=== PATIENT | male | born 1985 | race Caucasian/White ===

== ENCOUNTER 2018-07-25 02:25 | Emergency (ER) | payer MEDICAID ==
[2018-07-25] MEDS ORDERED: traMADol 50 MG Tab PO ONE (03:11)
--- NOTE | 2018-07-25 03:11 | EDM.PDOC ---
ED HPI GENERAL MEDICAL PROBLEM - General Chief Complaint: Headache Stated Complaint: TOOTHACHE Time Seen by Provider: 07/25/18 02:55 Source of Information: Reports: Patient, Old Records, RN History Limitations: Reports: No Limitations - History of Present Illness INITIAL COMMENTS - FREE TEXT/NARRATIVE: 33 yo male here with his father for a BECERRA that has been present for about a week. No fever. Thinks the BECERRA is a result of an infection from his bad teeth. Has not been to the clinic for this. Is a heavy alcohol drinker and has been drinking today. Has propranolol LA bid prescribed for HTN and states he is taking it. No recent head injury. Hasn't seen a dentist in years. Is taking ibuprofen without benefit, last dose 400 mg 3 hrs prior to arrival. Vomited yesterday. Onset: Gradual Onset Date: 07/18/18 Duration: Week(s): (1), Getting Worse Location: Reports: Head Quality: Reports: Ache Severity: Severe Improves with: Reports: None Worsens with: Reports: Other (time) Context: Reports: Other (Bad dentitian, heavy ETOH use.) Associated Symptoms: Reports: Headaches. 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: NSAIDS Headache Pain Score (Numeric/FACES): 8 - Related Data Allergies Allergy/AdvReac Type Severity Reaction Status Date / Time Sulfa (Sulfonamide Allergy Cannot Verified 07/25/18 02:38 Antibiotics) Remember Home Meds: Home Meds Propranolol [Inderal LA 24 Hr] 60 mg PO BID 07/25/18 [History] Past Medical History HEENT History: Reports: Impaired Vision Cardiovascular History: Reports: Hypertension, Other (See Below) Other Cardiovascular History: long QT syndrome Gastrointestinal History: Reports: GERD Musculoskeletal History: Reports: Fracture Psychiatric History: Reports: ADD, Addiction, Anxiety, Depression, Panic Attack Social & Family History - Family History Cardiac: Reports: Hypertension Other Cardiac Family History: Long QT syndrome - Tobacco Use Smoking Status *Q: Current Every Day Smoker Years of Tobacco use: 16 Packs/Tins Daily: 1 - Caffeine Use Caffeine Use: Reports: None - Alcohol Use Days Per Week of Alcohol Use: 7 Number of Drinks Per Day: 10 Total Drinks Per Week: 70 Date of Last Drink: 07/25/18 - Recreational Drug Use Recreational Drug Use: No ED ROS GENERAL - Review of Systems Review Of Systems: See Below Constitutional: Reports: No Symptoms HEENT: Reports: Dental Pain (chronic, but did have some L sided facial swelling earlier, now gone. ) Respiratory: Reports: No Symptoms Cardiovascular: Reports: No Symptoms GI/Abdominal: Reports: Nausea (recently, not now) : Reports: No Symptoms Musculoskeletal: Reports: No Symptoms Skin: Reports: No Symptoms Neurological: Reports: Headache - Physical Exam Exam: See Below Exam Limited By: No Limitations General Appearance: Alert, WD/WN, No Apparent Distress, Other (ETOH on breath) Eye Exam: Bilateral Eye: Normal Inspection Ears: Normal External Exam, Normal Canal, Hearing Grossly Normal, Normal TMs Nose: Normal Inspection, Normal Mucosa, No Blood Throat/Mouth: Normal Lips, Normal Oropharynx, Normal Voice, No Airway Compromise , Other (Very poor dentitian). No: Normal Teeth Head Exam: Atraumatic, Normocephalic. No: Facial Swelling Neck: Normal Inspection, Supple, Non-Tender Respiratory/Chest: No Respiratory Distress, Lungs Clear, Normal Breath Sounds, No Accessory Muscle Use Cardiovascular: Regular Rate, Rhythm, No Edema GI/Abdominal: Normal Bowel Sounds, Soft, Non-Tender, No Distention Neuro Exam (Abbreviated): Alert, Oriented, CN II-XII Intact, Normal Cognition, No Motor/Sensory Deficits Back Exam: Normal Inspection Extremities: Normal Inspection, Normal Range of Motion, Non-Tender, No Pedal Edema Psychiatric: Normal Affect, Normal Mood Skin Exam: Warm, Dry, Intact, Normal Color, No Rash Course - Vital Signs Last Recorded V/S: Last Vital Signs Temp 35.8 C 07/25/18 02:42 Pulse 63 07/25/18 02:42 Resp 18 07/25/18 02:42 BP 190/123 H 07/25/18 02:47 Pulse Ox 99 07/25/18 02:42 - Orders/Labs/Meds Orders: Active Orders 24 hr Category Date Time Status Head wo Cont [CT] Stat Exams 07/25/18 02:54 Ordered - Radiology Interpretation Free Text/Narrative:: Head CT scan-negative CT Results Date: 07/25/18 CT Results Time: 03:25 Departure - Departure Time of Disposition: 03:35 Disposition: Home, Self-Care 01 Condition: Fair Clinical Impression: Poor dentition Headache Qualifiers: Headache type: unspecified Headache chronicity pattern: acute headache Intractability: intractable Qualified Code(s): R51 - Headache HTN (hypertension) Qualifiers: Hypertension type: unspecified Qualified Code(s): I10 - Essential (primary) hypertension - Discharge Information *PRESCRIPTION DRUG MONITORING PROGRAM REVIEWED*: Not Applicable *COPY OF PRESCRIPTION DRUG MONITORING REPORT IN PATIENT NARGIS: Not Applicable Instructions: General Headache Without Cause Referrals: PCP,None [Primary Care Provider] - Additional Instructions: You need to stay away from alcohol in order to get your BP under control. Take both amlodipine and propranolol as recommended by your doctor to try to control your BP. Take penicillin as directed until gone for a potential dental infection. Take tramadol as directed for BECERRA control. See your doctor within the week for recheck. See a dentist of your choice randal. - My Orders Last 24 Hours: My Active Orders 07/25/18 02:54 Head wo Cont [CT] Stat - Assessment/Plan Last 24 Hours: My Active Orders 07/25/18 02:54 Head wo Cont [CT] Stat
[2018-07-25] MEDS ORDERED: Penicillin V Potassium 250 MG Tab PO ONE (03:25)
[2018-07-25] MEDS ORDERED: amLODIPine 5 MG Tab PO ONE (03:26)
[2018-07-25 04:05] VITALS: BP 182/120
== END 2018-07-25 03:48 | disposition home or self-care (01) ==
LOC: JP.ED 02:25
DX: R51 Headache (principal); K00.7 Teething syndrome; I10 Essential (primary) hypertension; Z88.2 Allergy status to sulfonamides; F17.210 Nicotine dependence, cigarettes, uncomplicated
CPT/HCPCS: 70450; 99284; A9270

== ENCOUNTER 2022-12-16 17:31 | Emergency (ER) | payer MEDICAID ==
[2022-12-16 18:37] LABS: ESTIMATED GFR 129 mL/min (>60)
[2022-12-16 18:53] LABS: CORONAVIRUS COVID-19 NAA NEGATIVE (NEGATIVE)
[2022-12-16] MEDS ORDERED: Metoprolol Succinate 50 MG Tab.ER PO ONE (20:13)
[2022-12-16 20:25] VITALS: BP 153/84; PULSE 58
[2022-12-18] MEDS ORDERED: Haloperidol Lactate 5 MG/ML SDV IVPUSH ONE (22:53)
[2022-12-18] MEDS ORDERED: LORazepam 2 MG/ML SDV IVPUSH ONE (22:53)
== END 2022-12-16 20:22 | disposition other institution (70) ==
LOC: JP.ED 17:31
DX: F10.120 Alcohol abuse with intoxication, uncomplicated (principal); I10 Essential (primary) hypertension; F17.210 Nicotine dependence, cigarettes, uncomplicated; Z88.2 Allergy status to sulfonamides; Z20.822 Contact with and (suspected) exposure to COVID-19; Y90.7 Blood alcohol level of 200-239 mg/100 ml
CPT/HCPCS: 0241U; 36415; 80053; 80305; 80307; 81001; 85025; 99284; A9270; 99283

== ENCOUNTER 2022-12-18 22:47 | Inpatient (IN) | payer MEDICAID ==
[2022-12-18] MEDS ORDERED: Haloperidol Lactate 5 MG/ML SDV IVPUSH ONE (23:11)
[2022-12-18] MEDS ORDERED: LORazepam 2 MG/ML SDV IVPUSH ONE (23:11)
[2022-12-18 23:20] LABS: ESTIMATED GFR 129 mL/min (>60)
[2022-12-19] MEDS ORDERED: MVI, Adult with Vitamin K 10 ML, Thiamine 100 MG, Folic Acid 1 MG, Magnesium Sulfate 2 ... IV ONE ×10 (00:23→21:00)
[2022-12-19] MEDS ORDERED: Sodium Chloride 3% 500 ML IV SCH (00:30)
[2022-12-19] MEDS ORDERED: Haloperidol Lactate 5 MG/ML SDV IVPUSH ONE ×2 (00:41→02:37)
[2022-12-19] MEDS ORDERED: LORazepam 2 MG/ML SDV IM ONE (00:41)
[2022-12-19] MEDS ORDERED: LORazepam 2 MG/ML SDV IVPUSH ONE (00:46)
[2022-12-19] MEDS: LORazepam 2 MG/ML SDV IV SCH ×16 (02:00→23:58)
[2022-12-19 04:38] LABS: ESTIMATED GFR 129 mL/min (>60)
[2022-12-19] MEDS: Haloperidol Lactate 5 MG/ML SDV IVPUSH PRN ×6 (07:25→23:57)
[2022-12-19] MEDS: traMADol 50 MG Tab PO PRN (15:03)
[2022-12-19] MEDS: Sodium Chloride 0.9% 1,000 ML IV SCH (18:21)
[2022-12-20] MEDS: LORazepam 2 MG/ML SDV IV SCH ×2 (01:49→05:04)
[2022-12-20] MEDS: Haloperidol Lactate 5 MG/ML SDV IVPUSH PRN (05:04)
[2022-12-20 05:18] LABS: ESTIMATED GFR 136 mL/min (>60)
[2022-12-20] MEDS: Sodium Chloride 0.9% 1,000 ML IV SCH ×2 (05:44→13:29)
[2022-12-20] MEDS: Potassium Chloride 20 MEQ Tab.ER PO SCH ×2 (10:29→20:03)
[2022-12-20] MEDS: LORazepam 1 MG Tab PO SCH ×7 (14:51→23:36)
[2022-12-20] MEDS: Metoprolol Succinate 50 MG Tab.ER PO SCH (19:49)
[2022-12-20] MEDS: traMADol 50 MG Tab PO PRN (22:32)
[2022-12-21] MEDS: LORazepam 1 MG Tab PO SCH ×4 (00:32→04:53)
[2022-12-21] MEDS: traMADol 50 MG Tab PO PRN ×2 (04:54→22:30)
[2022-12-21] MEDS: LORazepam 2 MG/ML SDV IV SCH ×14 (05:18→23:36)
[2022-12-21] MEDS: Haloperidol Lactate 5 MG/ML SDV IVPUSH PRN ×4 (05:44→23:23)
[2022-12-21] MEDS: Metoprolol Succinate 50 MG Tab.ER PO SCH (09:00)
[2022-12-21] MEDS: Potassium Chloride 20 MEQ Tab.ER PO SCH ×2 (10:30→20:06)
[2022-12-22] MEDS: LORazepam 2 MG/ML SDV IV SCH ×2 (00:25→01:31)
[2022-12-22] MEDS: Haloperidol Lactate 5 MG/ML SDV IVPUSH PRN (02:05)
[2022-12-22 10:21] LABS: ESTIMATED GFR 123 mL/min (>60)
[2022-12-22] MEDS: LORazepam 1 MG Tab PO SCH ×3 (13:53→22:25)
[2022-12-22] MEDS: Potassium Chloride 20 MEQ Tab.ER PO SCH ×2 (13:54→20:01)
[2022-12-22] MEDS: Metoprolol Succinate 50 MG Tab.ER PO SCH (13:56)
[2022-12-22] MEDS: traMADol 50 MG Tab PO PRN (22:25)
[2022-12-23] MEDS: Potassium Chloride 20 MEQ Tab.ER PO SCH ×2 (08:22→20:58)
[2022-12-23] MEDS: Metoprolol Succinate 50 MG Tab.ER PO SCH ×2 (11:49→17:32)
[2022-12-23] MEDS: traMADol 50 MG Tab PO PRN (13:36)
[2022-12-23] MEDS: LORazepam 1 MG Tab PO SCH ×2 (14:31→21:01)
[2022-12-23] MEDS ORDERED: Ibuprofen 800 MG Tab PO PRN (14:48)
[2022-12-23 20:12] LABS: ESTIMATED GFR 118 mL/min (>60)
[2022-12-24 07:09] VITALS: BP 147/96
[2022-12-24] MEDS: LORazepam 1 MG Tab PO SCH (08:59)
[2022-12-24 09:00] VITALS: PULSE 74
[2022-12-24] MEDS: Metoprolol Succinate 50 MG Tab.ER PO SCH (09:00)
[2022-12-24] MEDS: Potassium Chloride 20 MEQ Tab.ER PO SCH (09:00)
[2022-12-25 09:10] LABS: FREE THYROXINE INDEX 2.8 (1.2-4.9)
[2022-12-27 18:10] LABS: A/G RATIO 0.9 (0.7-1.7); ALBUMIN 3.5 g/dL (2.9-4.4); ALPHA-1-GLOBULIN 0.3 g/dL (0.0-0.4); ALPHA-2-GLOBULIN 0.7 g/dL (0.4-1.0); BETA GLOBULIN 1.5 g/dL (0.7-1.3); GAMMA GLOBULIN 1.5 g/dL (0.4-1.8); M-SPIKE Not Observed g/dL (Not Observed); PROTEIN, TOTAL, SERUM 7.5 g/dL (6.0-8.5)
== END 2022-12-24 10:36 | disposition home or self-care (01) | DRG 897 ==
LOC: JP.ED 22:47 → JP.ICU 23:39
PROVIDERS: ADMIT Internal Medicine; ATTEND Internal Medicine
DX: F10.231 Alcohol dependence with withdrawal delirium (principal); E87.1 Hypo-osmolality and hyponatremia; K70.9 Alcoholic liver disease, unspecified; I10 Essential (primary) hypertension; H54.7 Unspecified visual loss; K21.9 Gastro-esophageal reflux disease without esophagitis; F41.0 Panic disorder [episodic paroxysmal anxiety]; F32.A Depression, unspecified; Z88.2 Allergy status to sulfonamides
CPT/HCPCS: 36415; 80048; 80053; 84165; 84436; 84439; 84443; 84479; 84481; 85025; 96374; 96375; 96376; 99285; 99285-25; A9270-GY; J1630; J2060; J3411; J3475; J3490; J7030

== ENCOUNTER 2023-05-06 00:41 | Inpatient (IN) | payer MEDICAID ==
[2023-05-06] MEDS ORDERED: Sodium Chloride 0.9% 10 ML Syringe FLUSH PRN ×2 (02:12→15:51)
[2023-05-06] MEDS ORDERED: LORazepam 2 MG/ML SDV IVPUSH STA ×2 (02:12→06:32)
[2023-05-06 02:21] LABS: HEMATOCRIT 36.9 % (38.4-49.7); HEMOGLOBIN 13.6 g/dL (12.9-16.9); MEAN CORPUSCULAR HEMOGLOBIN 30.8 pg (31.6-35.5); MEAN CORPUSCULAR HGB CONC 36.9 g/dL (31.6-35.5); MEAN CORPUSCULAR VOLUME 83.7 fL (81.4-99.0); RED BLOOD CELL COUNT 4.41 M/uL (4.14-5.76); WHITE BLOOD CELL COUNT,WBC 2.9 K/uL (3.2-11.0)
[2023-05-06 02:42] LABS: A/G RATIO 0.9 (1.2-2.2); ALANINE AMINOTRANSFERASE,ALT 132 U/L (12-78); ALBUMIN 3.9 g/dL (3.4-5.0); ALKALINE PHOSPHATASE 156 U/L (46-116); ASPARTATE AMNIOTRANSFERASE,AST 196 U/L (15-37); BILIRUBIN TOTAL 0.6 mg/dL (0.2-1.0); BLOOD UREA NITROGEN,BUN 2 mg/dL (7-18); CALCIUM 8.9 mg/dL (8.5-10.1); CARBON DIOXIDE,CO2 23 mmol/L (21-32); CHLORIDE,CL 88 mmol/L (100-108); CREATININE 0.6 mg/dL (0.8-1.3); EST CRCL DRUG DOSING (CG) 175.74 mL/min; ESTIMATED GFR 128 mL/min (>60); GLUCOSE RANDOM 109 mg/dL (74-106); PROTEIN TOTAL,TP 8.1 g/dL (6.4-8.2); SODIUM,NA 124 mmol/L (140-148)
[2023-05-06] MEDS ORDERED: Sodium Chloride 0.9% 1,000 ML IV ONE ×2 (02:52→03:59)
[2023-05-06 03:05] LABS: BASOPHILS ABSOLUTE AUTO 0.03 K/uL (0.00-0.10); BASOPHILS PERCENT AUTO 1.1 % (0.1-1.3); EOSINOPHILS ABSOLUTE AUTO 0.01 K/uL (0.00-0.40); EOSINOPHILS PERCENT AUTO 0.4 % (0.0-5.4); HEMATOCRIT 37.4 % (38.4-49.7); HEMOGLOBIN 13.6 g/dL (12.9-16.9); IMMATURE GRAN ABSOLUTE AUTO 0.01 K/uL (0.00-0.23); IMMATURE GRAN PERCENT AUTO 0.4 % (0.0-0.7); LYMPHOCYTES ABSOLUTE AUTO 1.25 K/uL (0.8-3.3); LYMPHOCYTES PERCENT AUTO 43.9 % (11.4-47.7); MEAN CORPUSCULAR HEMOGLOBIN 30.5 pg (31.6-35.5); MEAN CORPUSCULAR HGB CONC 36.4 g/dL (31.6-35.5); MEAN CORPUSCULAR VOLUME 83.9 fL (81.4-99.0); MONOCYTES ABSOLUTE AUTO 0.29 K/uL (0.20-0.90); MONOCYTES PERCENT AUTO 10.2 % (3.3-12.6); NEUTROPHILS ABSOLUTE AUTO 1.26 K/uL (1.0-7.6); PLATELET COUNT,PLT 66 K/uL (130-375); RED BLOOD CELL COUNT 4.46 M/uL (4.14-5.76); WHITE BLOOD CELL COUNT,WBC 2.9 K/uL (3.2-11.0)
[2023-05-06 03:07] LABS: AMPHETAMINES SCREEN, URINE NEGATIVE (NEGATIVE); BARBITURATE SCREEN,URINE NEGATIVE (NEGATIVE); BENZODIAZEPINES SCREEN,URINE NEGATIVE (NEGATIVE); METHADONE SCREEN, URINE NEGATIVE (NEGATIVE); METHAMPHETAMINES SCREEN, URINE NEGATIVE (NEGATIVE); OXYCODONE SCREEN,URINE NEGATIVE (NEGATIVE); PROPOXYPHENE SCREEN,URINE NEGATIVE (NEGATIVE); THC SCREEN,URINE 50 NG/ML PRESUMPTIVE POSITIVE (NEGATIVE)
[2023-05-06 03:09] LABS: APPEARANCE,URINE CLEAR (CLEAR); BILIRUBIN,URINE NEGATIVE (NEGATIVE); COLOR,URINE YELLOW (YELLOW); GLUCOSE,URINE NEGATIVE (NEGATIVE); KETONES,URINE NEGATIVE (NEGATIVE); LEUKOCYTE ESTERASE,URINE NEGATIVE (NEGATIVE); NITRITE,URINE NEGATIVE (NEGATIVE); OCCULT BLOOD,URINE NEGATIVE (NEGATIVE); PH,URINE 5.5 (5.0-8.0); PROTEIN,URINE NEGATIVE (NEGATIVE); UROBILINOGEN,URINE 0.2 EU/dL (0.2-1.0)
[2023-05-06 03:12] LABS: AMORPHOUS SEDIMENT,URINE NOT SEEN; BACTERIA,URINE RARE; EPITHELIAL CELLS,URINE RARE; MUCUS,URINE RARE; RBC,URINE 0-5 (0-5); WBC,URINE 0-5 (0-5)
[2023-05-06] MEDS ORDERED: LORazepam 2 MG/ML SDV IVPUSH ONE (10:02)
[2023-05-06] MEDS ORDERED: Sennosides/Docusate Sodium 50-8.6 MG Tab PO PRN (15:51)
[2023-05-06] MEDS ORDERED: Ondansetron 4 MG/2 ML SDV IV PRN (15:51)
[2023-05-06] MEDS ORDERED: Albuterol 0.083% 2.5 MG/3 ML Neb Soln NEB PRN (15:51)
[2023-05-06] MEDS ORDERED: MVI, Adult with Vitamin K 10 ML, Thiamine 100 MG, Folic Acid 1 MG, Magnesium Sulfate 2 ... IV ONE ×5 (16:00)
[2023-05-06] MEDS: Pantoprazole 40 MG Tab.CR PO SCH (16:50)
[2023-05-06] MEDS: Gabapentin 400 MG Cap PO SCH (16:51)
[2023-05-06] MEDS: Folic Acid 1 MG Tab PO SCH (16:51)
[2023-05-06] MEDS: Thiamine 100 MG Tab PO SCH (16:51)
[2023-05-06] MEDS: LORazepam 1 MG Tab PO SCH ×3 (17:02→21:58)
[2023-05-07] MEDS: LORazepam 1 MG Tab PO SCH ×6 (00:13→10:07)
[2023-05-07] MEDS: Gabapentin 400 MG Cap PO SCH ×4 (00:13→23:42)
[2023-05-07 05:17] LABS: HEMATOCRIT 35.2 % (38.4-49.7); HEMOGLOBIN 12.6 g/dL (12.9-16.9); MEAN CORPUSCULAR HGB CONC 35.8 g/dL (31.6-35.5); MEAN CORPUSCULAR VOLUME 86.7 fL (81.4-99.0); RED BLOOD CELL COUNT 4.06 M/uL (4.14-5.76)
[2023-05-07 05:26] LABS: INR 1.1
[2023-05-07 05:38] LABS: ALANINE AMINOTRANSFERASE,ALT 108 U/L (12-78); ALBUMIN 3.3 g/dL (3.4-5.0); BILIRUBIN TOTAL 1.1 mg/dL (0.2-1.0); BLOOD UREA NITROGEN,BUN 4 mg/dL (7-18); CALCIUM 8.7 mg/dL (8.5-10.1); CARBON DIOXIDE,CO2 23 mmol/L (21-32); CHLORIDE,CL 95 mmol/L (100-108); CREATININE 0.6 mg/dL (0.8-1.3); EST CRCL DRUG DOSING (CG) 175.74 mL/min; ESTIMATED GFR 128 mL/min (>60); GLUCOSE RANDOM 85 mg/dL (74-106); MAGNESIUM 2.3 mg/dL (1.8-2.4); POTASSIUM,K 4.5 mmol/L (3.6-5.2); PROTEIN TOTAL,TP 7.2 g/dL (6.4-8.2); SODIUM,NA 130 mmol/L (140-148)
[2023-05-07 05:41] LABS: A/G RATIO 0.9 (1.2-2.2); ALKALINE PHOSPHATASE 130 U/L (46-116); ANION GAP 16.5 mmol/L (5.0-14.0)
[2023-05-07 05:42] LABS: ASPARTATE AMNIOTRANSFERASE,AST 166 U/L (15-37)
[2023-05-07] MEDS: Pantoprazole 40 MG Tab.CR PO SCH (07:36)
[2023-05-07] MEDS: Thiamine 100 MG Tab PO SCH (08:14)
[2023-05-07] MEDS: Folic Acid 1 MG Tab PO SCH (08:14)
[2023-05-07] MEDS: LORazepam 2 MG/ML SDV IV SCH ×8 (12:46→23:34)
[2023-05-07 22:04] LABS: BASE EXCESS ARTERIAL 1.1 mm/L; BICARBONATE,ARTERIAL 24.1 mmol/L (22.0-26.0); CARBOXYHEMOGLOBIN 1.7 % (0.0-1.6); METHEMOGLOBIN 0.8 %; O2 SATURATION ARTERIAL 95.7 % (95.0-98.0); OXYHEMOGLOBIN 93.3 %; PO2 ARTERIAL 79.2 mmHg (75.0-100.0); TOTAL HEMOGLOBIN 12.5 g/dL (13.5-18.0)
[2023-05-08] MEDS: LORazepam 2 MG/ML SDV IV SCH ×20 (00:56→22:14)
[2023-05-08] MEDS ORDERED: PHENobarbitaL sodium 260 MG in Sodium Chloride 0.9% 100 ML IV ONE (04:33)
[2023-05-08] MEDS ORDERED: PHENobarbitaL sodium 130 MG in Sodium Chloride 0.9% 100 ML IV ONE ×6 (05:57→15:30)
[2023-05-08] MEDS ORDERED: PHENobarbital Sodium 65 MG/ML SDV ONE (06:00)
[2023-05-08] MEDS ORDERED: Sodium Chloride 0.9% 100 ML ONE (06:01)
[2023-05-08 06:07] LABS: BASOPHILS PERCENT AUTO 0.4 % (0.1-1.3); EOSINOPHILS PERCENT AUTO 0.4 % (0.0-5.4); HEMATOCRIT 33.8 % (38.4-49.7); HEMOGLOBIN 12.1 g/dL (12.9-16.9); IMMATURE GRAN PERCENT AUTO 0.8 % (0.0-0.7); LYMPHOCYTES ABSOLUTE AUTO 0.64 K/uL (0.8-3.3); LYMPHOCYTES PERCENT AUTO 26.9 % (11.4-47.7); MEAN CORPUSCULAR HEMOGLOBIN 31.1 pg (31.6-35.5); MEAN CORPUSCULAR HGB CONC 35.8 g/dL (31.6-35.5); MEAN CORPUSCULAR VOLUME 86.9 fL (81.4-99.0); MONOCYTES PERCENT AUTO 8.4 % (3.3-12.6); NEUTROPHILS PERCENT AUTO 63.1 % (40.0-78.1); PLATELET COUNT,PLT 32 K/uL (130-375); RED BLOOD CELL COUNT 3.89 M/uL (4.14-5.76); WHITE BLOOD CELL COUNT,WBC 2.4 K/uL (3.2-11.0)
[2023-05-08 06:16] LABS: INR 1.2; PROTHROMBIN TIME 12.2 sec (9.2-10.6)
[2023-05-08 06:20] LABS: A/G RATIO 0.8 (1.2-2.2); ALANINE AMINOTRANSFERASE,ALT 106 U/L (12-78); ALBUMIN 3.2 g/dL (3.4-5.0); ALKALINE PHOSPHATASE 131 U/L (46-116); ASPARTATE AMNIOTRANSFERASE,AST 161 U/L (15-37); BILIRUBIN TOTAL 1.7 mg/dL (0.2-1.0); BLOOD UREA NITROGEN,BUN 2 mg/dL (7-18); CALCIUM 8.9 mg/dL (8.5-10.1); CARBON DIOXIDE,CO2 26 mmol/L (21-32); CHLORIDE,CL 95 mmol/L (100-108); CREATININE 0.6 mg/dL (0.8-1.3); EST CRCL DRUG DOSING (CG) 175.74 mL/min; ESTIMATED GFR 128 mL/min (>60); GLUCOSE RANDOM 101 mg/dL (74-106); POTASSIUM,K 3.9 mmol/L (3.6-5.2); PROTEIN TOTAL,TP 7.1 g/dL (6.4-8.2); SODIUM,NA 130 mmol/L (140-148)
[2023-05-08 06:27] LABS: ANION GAP 12.9 mmol/L (5.0-14.0); BASOPHILS ABSOLUTE AUTO 0.01 K/uL (0.00-0.10); EOSINOPHILS ABSOLUTE AUTO 0.01 K/uL (0.00-0.40); IMMATURE GRAN ABSOLUTE AUTO 0.02 K/uL (0.00-0.23)
[2023-05-08] MEDS: Gabapentin 400 MG Cap PO SCH ×3 (07:15→23:41)
[2023-05-08] MEDS: Pantoprazole 40 MG Tab.CR PO SCH (07:15)
[2023-05-08] MEDS: Folic Acid 1 MG Tab PO SCH (08:13)
[2023-05-08] MEDS: Thiamine 100 MG Tab PO SCH (08:13)
[2023-05-09] MEDS: LORazepam 2 MG/ML SDV IV SCH ×9 (00:21→19:17)
[2023-05-09 05:08] LABS: BASOPHILS PERCENT AUTO 0.3 % (0.1-1.3); EOSINOPHILS ABSOLUTE AUTO 0.03 K/uL (0.00-0.40); EOSINOPHILS PERCENT AUTO 0.9 % (0.0-5.4); HEMATOCRIT 35.3 % (38.4-49.7); HEMOGLOBIN 12.5 g/dL (12.9-16.9); IMMATURE GRAN PERCENT AUTO 0.3 % (0.0-0.7); LYMPHOCYTES PERCENT AUTO 21.8 % (11.4-47.7); MEAN CORPUSCULAR HGB CONC 35.4 g/dL (31.6-35.5); MEAN CORPUSCULAR VOLUME 87.6 fL (81.4-99.0); MONOCYTES ABSOLUTE AUTO 0.23 K/uL (0.20-0.90); MONOCYTES PERCENT AUTO 7.2 % (3.3-12.6); NEUTROPHILS ABSOLUTE AUTO 2.23 K/uL (1.0-7.6); NEUTROPHILS PERCENT AUTO 69.5 % (40.0-78.1); PLATELET COUNT,PLT 36 K/uL (130-375); RED BLOOD CELL COUNT 4.03 M/uL (4.14-5.76); WHITE BLOOD CELL COUNT,WBC 3.2 K/uL (3.2-11.0)
[2023-05-09 05:17] LABS: BASOPHILS ABSOLUTE AUTO 0.01 K/uL (0.00-0.10); IMMATURE GRAN ABSOLUTE AUTO 0.01 K/uL (0.00-0.23); INR 1.1; PROTHROMBIN TIME 11.4 sec (9.2-10.6)
[2023-05-09 05:27] LABS: A/G RATIO 0.8 (1.2-2.2); ALANINE AMINOTRANSFERASE,ALT 103 U/L (12-78); ALBUMIN 3.1 g/dL (3.4-5.0); ALKALINE PHOSPHATASE 122 U/L (46-116); ASPARTATE AMNIOTRANSFERASE,AST 149 U/L (15-37); BILIRUBIN TOTAL 1.5 mg/dL (0.2-1.0); BLOOD UREA NITROGEN,BUN 1 mg/dL (7-18); CALCIUM 8.7 mg/dL (8.5-10.1); CARBON DIOXIDE,CO2 23 mmol/L (21-32); CHLORIDE,CL 97 mmol/L (100-108); CREATININE 0.5 mg/dL (0.8-1.3); EST CRCL DRUG DOSING (CG) 210.89 mL/min; ESTIMATED GFR 136 mL/min (>60); GLUCOSE RANDOM 91 mg/dL (74-106); POTASSIUM,K 3.6 mmol/L (3.6-5.2); PROTEIN TOTAL,TP 6.9 g/dL (6.4-8.2); SODIUM,NA 131 mmol/L (140-148)
[2023-05-09 05:31] LABS: ANION GAP 14.6 mmol/L (5.0-14.0)
[2023-05-09] MEDS: PHENobarbitaL sodium 130 MG in Sodium Chloride 0.9% 100 ML IV SCH ×2 (09:14→21:30)
[2023-05-09] MEDS: Pantoprazole 40 MG Tab.CR PO SCH (09:22)
[2023-05-09] MEDS: Gabapentin 400 MG Cap PO SCH ×2 (09:22→16:00)
[2023-05-09] MEDS: Thiamine 100 MG Tab PO SCH (09:22)
[2023-05-09] MEDS: Folic Acid 1 MG Tab PO SCH (09:22)
[2023-05-09] MEDS: Pantoprazole 40 MG Vial IVPUSH SCH (10:46)
[2023-05-09] MEDS: Dextrose 5%-Lact Ringers w/KCl 1,000 ML IV SCH (11:10)
[2023-05-10] MEDS: Gabapentin 400 MG Cap PO SCH ×3 (00:45→15:36)
[2023-05-10] MEDS: Dextrose 5%-Lact Ringers w/KCl 1,000 ML IV SCH (01:03)
[2023-05-10] MEDS: LORazepam 1 MG Tab PO SCH (03:17)
[2023-05-10 05:07] LABS: HEMATOCRIT 33.1 % (38.4-49.7); HEMOGLOBIN 11.6 g/dL (12.9-16.9); MEAN CORPUSCULAR HEMOGLOBIN 30.7 pg (31.6-35.5); MEAN CORPUSCULAR VOLUME 87.6 fL (81.4-99.0); RED BLOOD CELL COUNT 3.78 M/uL (4.14-5.76); WHITE BLOOD CELL COUNT,WBC 3.4 K/uL (3.2-11.0)
[2023-05-10 05:29] LABS: A/G RATIO 0.7 (1.2-2.2); ALANINE AMINOTRANSFERASE,ALT 93 U/L (12-78); ALBUMIN 2.8 g/dL (3.4-5.0); ALKALINE PHOSPHATASE 118 U/L (46-116); ASPARTATE AMNIOTRANSFERASE,AST 106 U/L (15-37); BILIRUBIN TOTAL 0.9 mg/dL (0.2-1.0); BLOOD UREA NITROGEN,BUN 2 mg/dL (7-18); CALCIUM 8.6 mg/dL (8.5-10.1); CARBON DIOXIDE,CO2 24 mmol/L (21-32); CHLORIDE,CL 99 mmol/L (100-108); CREATININE 0.5 mg/dL (0.8-1.3); EST CRCL DRUG DOSING (CG) 210.89 mL/min; ESTIMATED GFR 136 mL/min (>60); GLUCOSE RANDOM 105 mg/dL (74-106); POTASSIUM,K 3.7 mmol/L (3.6-5.2); PROTEIN TOTAL,TP 6.6 g/dL (6.4-8.2); SODIUM,NA 132 mmol/L (140-148)
[2023-05-10 05:33] LABS: ANION GAP 12.7 mmol/L (5.0-14.0)
[2023-05-10] MEDS: PHENobarbitaL sodium 130 MG in Sodium Chloride 0.9% 100 ML IV SCH (08:40)
[2023-05-10] MEDS: Folic Acid 1 MG Tab PO SCH (11:47)
[2023-05-10] MEDS: Thiamine 100 MG Tab PO SCH (11:47)
[2023-05-10] MEDS: Pantoprazole 40 MG Tab.CR PO SCH (11:47)
[2023-05-10] MEDS: Pantoprazole 40 MG Vial IVPUSH SCH (15:34)
[2023-05-10] MEDS: Acetaminophen 325 MG Tab PO PRN (15:36)
[2023-05-11] MEDS: LORazepam 1 MG Tab PO SCH ×3 (01:15→07:47)
[2023-05-11 04:57] LABS: HEMOGLOBIN 11.6 g/dL (12.9-16.9); MEAN CORPUSCULAR HEMOGLOBIN 31.2 pg (31.6-35.5); MEAN CORPUSCULAR HGB CONC 35.2 g/dL (31.6-35.5); MEAN CORPUSCULAR VOLUME 88.7 fL (81.4-99.0); RED BLOOD CELL COUNT 3.72 M/uL (4.14-5.76); WHITE BLOOD CELL COUNT,WBC 3.3 K/uL (3.2-11.0)
[2023-05-11 05:20] LABS: A/G RATIO 0.7 (1.2-2.2); ALANINE AMINOTRANSFERASE,ALT 79 U/L (12-78); ALBUMIN 2.8 g/dL (3.4-5.0); ALKALINE PHOSPHATASE 122 U/L (46-116); ASPARTATE AMNIOTRANSFERASE,AST 77 U/L (15-37); BILIRUBIN TOTAL 0.8 mg/dL (0.2-1.0); BLOOD UREA NITROGEN,BUN 3 mg/dL (7-18); CALCIUM 8.6 mg/dL (8.5-10.1); CARBON DIOXIDE,CO2 24 mmol/L (21-32); CHLORIDE,CL 98 mmol/L (100-108); CREATININE 0.6 mg/dL (0.8-1.3); EST CRCL DRUG DOSING (CG) 176.17 mL/min; ESTIMATED GFR 128 mL/min (>60); GLUCOSE RANDOM 89 mg/dL (74-106); POTASSIUM,K 3.7 mmol/L (3.6-5.2); PROTEIN TOTAL,TP 6.7 g/dL (6.4-8.2); SODIUM,NA 132 mmol/L (140-148)
[2023-05-11 05:22] LABS: ANION GAP 13.7 mmol/L (5.0-14.0)
[2023-05-11] MEDS: Pantoprazole 40 MG Tab.CR PO SCH (07:46)
[2023-05-11] MEDS: Folic Acid 1 MG Tab PO SCH (08:00)
[2023-05-11] MEDS: Thiamine 100 MG Tab PO SCH (08:00)
[2023-05-11] MEDS: LORazepam 1 MG Tab PO PRN ×2 (14:24→22:16)
[2023-05-11] MEDS ORDERED: buPROPion 150 MG Tab.SR PO ONE (15:01)
[2023-05-12 06:00] VITALS: BP 150/86; PULSE 80
[2023-05-12] MEDS: Pantoprazole 40 MG Tab.CR PO SCH (06:57)
[2023-05-12] MEDS: Thiamine 100 MG Tab PO SCH (08:25)
[2023-05-12] MEDS: Folic Acid 1 MG Tab PO SCH (08:25)
[2023-05-12] MEDS ORDERED: buPROPion 150 MG Tab.SR PO SCH (09:00)
[2023-05-12] MEDS: Acetaminophen 325 MG Tab PO PRN (09:16)
== END 2023-05-12 10:01 | DRG 897 ==
LOC: JP.ED 00:41 → JP.ICU 15:08
PROVIDERS: ADMIT Hospitalist; ATTEND Internal Medicine
DX: F10.231 Alcohol dependence with withdrawal delirium (principal); H54.7 Unspecified visual loss; K70.10 Alcoholic hepatitis without ascites; F10.288 Alcohol dependence with other alcohol-induced disorder; K21.9 Gastro-esophageal reflux disease without esophagitis; F41.0 Panic disorder [episodic paroxysmal anxiety]; Z20.822 Contact with and (suspected) exposure to COVID-19; F98.8 Other specified behavioral and emotional disorders with onset usually occurring in childhood and adolescence; Y90.8 Blood alcohol level of 240 mg/100 ml or more; F32.9 Major depressive disorder, single episode, unspecified; Z87.891 Personal history of nicotine dependence; Z79.899 Other long term (current) drug therapy
CPT/HCPCS: 36415; 36600; 71046; 71046-26; 80053; 80305-QW; 80307; 81001; 82803; 83735; 84295; 84484; 85025; 85027; 85610; 93005; 96361; 96374; 96376; 97110-GP; 97161-GP; 99285; 99285-25; A9270-GY; C9113; J2060; J2405; J2560; J3411; J3475; J3480; J3490; J7030; U0002